=== PATIENT | male | born 1935 | race Caucasian/White ===

== ENCOUNTER 2018-07-01 09:56 | Emergency (ER) | payer MEDICARE ==
--- NOTE | 2018-07-01 10:13 | ED ---
Neurological HPI - HPI Summary HPI Summary: This pt is an 82 y/o male presenting to [facility] via EMS from [facility] who presents with unresponsiveness and left sided deficits today. EMS reports pt walked down to breakfast at around 07:00 today and at around 08:30 pt became unresponsive. Per EMS, sometime in between breakfast and unresponsiveness staff noted pt to have left sided deficit. Upon arrival to the ED, nursing staff noted that pt was not moving his left side. While in CT scan pt began to move left side. Per aide who works at this group home, pt slept all day yesterday and as he likes to wander around he fell in another resident's room the day before yesterday. Pt is a DNR and requires comfort measures only. HPI IS LIMITED DUE TO LEVEL 5 CAVEAT - pt is lethargic. - History of Current Complaint Chief Complaint: EDNeurologicalDeficit Stated Complaint: UNRESPONSIVE Time Seen by Provider: 07/01/18 10:01 Hx Obtained From: EMS Hx From Patient Unobtainable Due To: Other - LEVEL 5 CAVEAT - pt is lethargic Onset/Duration: Sudden Onset, Started hours ago, Still Present Timing: Sudden Onset Current Severity: Moderate Neurological Deficit Location: LUE, LLE Pain Intensity: 0 Character: Lethargy, Responsiveness, Other: - POS: left sided deficit Aggravating: Unknown Alleviating: Unknown - Allergy/Home Medications Allergies/Adverse Reactions: Allergies Allergy/AdvReac Type Severity Reaction Status Date / Time No Known Allergies Allergy Verified 07/01/18 10:04 Home Medications: Home Medications Acetaminophen [Acetaminophen ER] 650 mg PO SEE INSTRUCTIONS PRN 07/01/18 [ History Confirmed 07/01/18] Amlodipine Besylate [Norvasc 5 mg tab] 5 mg PO DAILY 07/01/18 [History Confirmed 07/01/18] Cholecalciferol TAB* [Vitamin D TAB*] 2,000 unit PO DAILY 07/01/18 [History Confirmed 07/01/18] Enalapril Maleate 20 mg PO DAILY 07/01/18 [History Confirmed 07/01/18] Finasteride [Proscar] 5 mg PO DAILY 07/01/18 [History Confirmed 07/01/18] Insulin Glargine,Hum.rec.anlog [Lantus] 45 unit SC DAILY 07/01/18 [History Confirmed 07/01/18] Multivitamin 1 tab PO DAILY 07/01/18 [History Confirmed 07/01/18] Sennosides [Kp Senna] 17.2 mg PO BID 07/01/18 [History Confirmed 07/01/18] Sertraline HCl [Zoloft] 25 mg PO DAILY 07/01/18 [History Confirmed 07/01/18] Tamsulosin HCl 0.4 mg PO DAILY 07/01/18 [History Confirmed 07/01/18] PMH/Surg Hx/FS Hx/Imm Hx Previously Healthy: No - unknown due to level 5 caveat - pt is lethargic Endocrine/Hematology History: Reports: Hx Diabetes Cardiovascular History: Reports: Hx Hypertension History: Reports: Hx Benign Prostatic Hyperplasia Neurological History: Reports: Hx Dementia Infectious Disease History: Unable to Obtain/Confirm Infectious Disease History: Denies: Traveled Outside the [place] in Last 30 Days - Family History Known Family History: Positive: Unknown - LEVEL 5 CAVEAT - pt is lethargic. - Social History Lives: [facility] Alcohol Use: unknown due to level 5 caveat - lethargic Smoking Status (MU): Unknown if Ever Smoked Review of Systems - ROS Summary Review of Systems Summary: ROS IS LIMITED DUE TO LEVEL 5 CAVEAT - pt is lethargic. Negative: Fever Neurological: Other - POS: left sided deficit, unresponsive All Other Systems Reviewed And Are Negative: No Physical Exam - Summary Physical Exam Summary: Constitutional: Well-developed, Well-nourished, Responds to painful stimuli. (- ) Distressed Skin: Warm, Dry HENT: Normocephalic; Atraumatic Eyes: Conjunctiva normal Neck: Musculoskeletal ROM normal neck. (-) JVD, (-) Stridor, (-) Tracheal deviation Cardio: Rhythm regular, rate normal, Heart sounds normal; Intact distal pulses; The pedal pulses are 2+ and symmetric. Radial pulses are 2+ and symmetric. (-) Murmur Pulmonary/Chest wall: Effort normal. (-) Respiratory distress, (-) Wheezes, (-) Rales Abd: Soft. (-) Tenderness, (-) Distension, (-) Guarding, (-) Rebound Musculoskeletal: (-) Edema Lymph: (-) Cervical adenopathy Neuro: Partial Gaze Palsy. Responds to painful stimuli Psych: Mood and affect Normal Triage Information Reviewed: Yes Vital Signs On Initial Exam: Initial Vitals Temp Pulse Resp BP Pulse Ox 96.8 F 87 18 172/85 97 07/01/18 10:02 07/01/18 10:02 07/01/18 10:02 07/01/18 10:02 07/01/18 10:02 Vital Signs Reviewed: Yes Completion Of Physical Exam Limited Due To: Level 5 - pt is lethargic Diagnostics - Vital Signs Vital Signs Temp Pulse Resp BP Pulse Ox 07/01/18 10:02 96.8 F 87 18 172/85 97 - Laboratory Result Diagrams: 07/01/18 10:16 07/01/18 10:16 Lab Statement: Any lab studies that have been ordered have been reviewed, and results considered in the medical decision making process. - Radiology Chest XR Radiology Interpretation Completed By: Radiologist Summary of Radiographic Findings: IMPRESSION: No active cardiopulmonary disease is noted. Dr. Young has reviewed this report. - CT Brain CT CT Interpretation Completed By: Radiologist Summary of CT Findings: IMPRESSION: Multifocal hypoattenuation of the parietal lobes bilaterally suggestive of subacute nonhemorrhagic infarcts. Preliminary findings were discussed with Dr. Young in the emergency department at approximately 10:13 AM on July 01, 2018. - EKG 10:16 Cardiac Rate: NL - at 76 bpm Summary of EKG Findings: Paced rhythm. No STEMI. NIH Scale - NIH Scale Level of Consciousness: Alert/Keenly Responsive Ask Patient the Month and His/Her Age: Both Correct Ask Pt to Open/Close Eyes and [employer] Consultant/Release Non-Paretic Hand: Both Correctly Best Gaze (Only Horizontal Eye Movement): Partial Gaze Palsy Visual Field Testing: No Visual Loss Facial Paresis-Pt to Smile & Close Eyes or Grimace Symmetry: Normal/Symmetrical Motor Function - Right Arm: No Drift-Holds 10 Seconds Motor Function - Left Arm: No Drift-Holds 10 Seconds Motor Function - Right Leg: No Drift-Holds 10 Seconds Motor Function - Left Leg: No Drift-Holds 10 Seconds Limb Ataxia-Must be out of Proportion to Weakness Present: Absent Sensory (Use Pinprick to Test Arms/Legs/Trunk/Face): Normal Best Language (Describe Picture, Name Items): No Aphasia Dysarthria (Read Several Words): Normal Extinction and Inattention: No Abnormality Total Score: 1 Re-Evaluation - Re-Evaluation First Eval Re-Evaluation Time: 10:10 Comment: pt returned from CT Second Eval Re-Evaluation Time: 10:11 Comment: Dr. Erickson, neurologist, at bedside. Course/Dx - Course Course Of Treatment: RED KENNEDY at 0958. Brain CT ordered at 09:59. Pt to CT scan at 10:00. Returned from CT at 10:10. Dr. Erickson, neurologist, at bedside at 10:11. Dr. Tripathi, radiologist, reports brain CT results at 10:13. Dr. Erickson at 12:30 reports he suspects CVA. TPA is contraindicted due to previous bleeds and encephalomalacia. Assessment/Plan: Pt is an 82 y/o male presenting to [facility] via EMS from [facility] who presents with unresponsiveness and left sided deficits today. EMS reports pt walked down to breakfast at around 07:00 today and at around 08: 30 pt became unresponsive. Per EMS, sometime in between breakfast and unresponsiveness staff noted pt to have left sided deficit. Pt is a DNR and requires comfort measures only. RED KENNEDY called at 09:58. Brain CT shows multifocal hypoattenuation of the parietal lobes bilaterally suggestive of subacute nonhemorrhagic infarcts. Discussed case with Dr. Erickson, neurologist , and he suspects CVA. TPA is contraindicated due to previous bleeds and encephalomalacia. Comfort care status. Admit for palliative care. I discussed with Dr. Parks, hospitalist, who accepted the pt for admission. - Diagnoses Provider Diagnoses: CVA (cerebral vascular accident) During the Visit The Following Alert/Code Occurred: Red Kennedy - at 09:58 - Physician Notifications Discussed Care Of Patient With: Stefano Sousa Time Discussed With Above Provider: 10:13 Instructed by Provider To: Other - Dr. Cervantes, radiologist, reports brain CT results. [12:30] Discussed with Dr. Erickson, neurologist, and he suspects CVA. TPA is contraindicated due to previous bleeds. [12:54] I discussed with Dr. Parks, hospitalist, who accepted the pt for admission. - Critical Care Time Critical Care Time: 30-74 min - 45 minutes Discharge - Sign-Out/Discharge Documenting (check all that apply): Patient Departure - Admit to [facility] - Discharge Plan Condition: Stable Disposition: ADMITTED TO [facility] Referrals: Wali Monaco MD [Primary Care Provider] - - Attestation Statements Document Initiated by Scribe: Yes Documenting Scribe: Renee Rayo Provider For Whom Scribe is Documenting (Include Credential): Angel Young MD Scribe Attestation: Renee Alan, scribed for Angel Young MD on 07/01/18 at 1332. Status of Scribe Document: Ready
[2018-07-01 10:28] LABS: ABS Basophils 0.1 10^3/ul (0-0.2); ABS Eosinophils 0.1 10^3/ul (0-0.6); ABS Lymphocytes 1.4 10^3/ul (1.0-4.8); ABS Monocytes 0.8 10^3/ul (0-0.8); ABS Neutrophils 7.4 10^3/ul (1.5-7.7); ABS Nucleated RBC 0 10^3/ul; Eosinophil % 1.4 %; Hematocrit 39 % (42-52); Hemoglobin 13.1 g/dl (14.0-18.0); Lymphocyte % 14.1 %; Mean Corpuscular HGB Conc 34 g/dl (31-36); Mean Corpuscular Hemoglobin 31 pg (27-31); Mean Corpuscular Volume 92 fL (80-94); Mean Platelet Volume 8.7 fL (7.4-10.4); Nucleated Red Blood Cells % 0; Platelet Count 229 10^3/ul (150-450); Red Blood Count 4.21 10^6/ul (4.00-5.40); Red Cell Distribution Width 15 % (10.5-15); White Blood Count 9.9 10^3/ul (3.5-10.8)
[2018-07-01 10:40] LABS: Activated Partial Thrombo Time 29.4 seconds (26.0-36.3); INR 1.12 (0.77-1.02)
[2018-07-01 10:54] LABS: Albumin 3.9 g/dL (3.2-5.2); BUN/Creatinine Ratio 24.8 (8-20); Calcium 10.8 mg/dL (8.6-10.3); EGFR Non-African American 64.9 (>60); Globulin 3.9 g/dL (2-4); HDL Cholesterol 38.8 mg/dL; Total Bilirubin 2.4 mg/dL (0.2-1.0); Total Protein 7.8 g/dL (6.4-8.9)
--- NOTE | 2018-07-01 13:16 | CONS ---
NEUROLOGY CONSULTATION: DATE OF CONSULT: 07/01/18 LOCATION: He is in the emergency room. REFERRING PHYSICIAN: Dr. Young. CHIEF COMPLAINT: Unresponsiveness. HISTORY OF PRESENT ILLNESS: Aldo Sharma is an 82-year-old resident of [facility], who was sent in with unresponsiveness to the emergency room this morning. The history that was given to me via nursing staff and Dr. Young is that he was able to walk to his breakfast and was well until approximately 7:30 or 8. He apparently slumped to the left and then was unresponsive. He was brought into the emergency room and a CAT scan was obtained, which reveals a severe atrophy and bilateral occipital parietal hypodensities. The interpretation is multifocal hypoattenuation of the parietal lobes bilaterally suggestive of subacute nonhemorrhagic infarcts. Upon my initial evaluation in the emergency room, he had a right gaze preference and was unresponsive with eyes closed. Over time, he became a little more responsive. PAST MEDICAL HISTORY: Limited. He apparently is demented. As part of code alexander, we have determined he is not on anticoagulants. He does have diabetes and hypertension. There are no laboratories back yet. Otherwise, I do not yet have his med list. He apparently is not to be resuscitated and there is some indication he is not to be transferred. I have his healthcare proxy's name and phone number; we will call after this brief note and follow up with the second later. MEDICATIONS: His med list was found sent over from his [facility]. 1. He is on amlodipine 5 mg p.o. daily. 2. Vitamin D. 3. Enalapril 20 mg p.o. daily. 4. Proscar 5 mg p.o. daily. 5. Senna. 6. Tamsulosin 0.4 mg p.o. daily. 7. Vitamins. 8. Sertraline 25 mg p.o. daily. 9. Lantus insulin. 10. Acetaminophen p.r.n. pain. PHYSICAL EXAM: On examination, his blood pressure is running about 160/90, heart rate is in the 60s and appears to be regular. There are occasional ectopic beats. His QRS complex is wide. Skin is warm and dry. Head is atraumatic other than right ear looks a little bit abraised, red and swollen. Neck range of motion is limited, but there is no meningismus. Heart tones are distant, but I do not hear any murmurs. Carotid pulses are present. I do not hear cervical bruits. Neurologically, he has a forced right gaze deviation. His pupils are somewhat small and reactive to light from about 2.5 down to 2 mm. I could see his left optic disc and it appeared sharp. He did not respond of visual threat from either direction. Facial musculature revealed relative left facial weakness when stimulated in producing a grimace. Facial sensation and nasal tickle was responsive bilaterally, but more briskly responsive on the right than the left. I could not get him to open his mouth long enough for me to take a look at his palate and tongue. He was mute. He moves both arms and both legs. He tends to move the right side a bit more. He tends to want to cross the right leg over the left. Muscle tone seems a little bit less in the left arm and leg in the right. He responds briskly to deep nail bed pressure on the right arm with a right more than left facial grimace, and then responds a little more sluggishly into a greater degree of nail bed pressure in the left arm than to the right, again with right facial grimace. He does move the left leg restlessly. He has bilateral Babinski signs. There is no laboratory data yet to review other than the CT scan. IMPRESSION: Impression is that of a probable right hemisphere stroke. He also has bilateral occipital parietal hypodensities. He may have had multiple cardiac emboli or episode of hypotension. One of the nurses who works at [facility] said that he reportedly fell the day before yesterday and slept most all of yesterday. Head trauma would be another possibility, but it sounds like he was reasonably functional first thing this morning. He did speak with his healthcare proxy as to what extent intervention is desired. I certainly would not recommend tPA given his subacute infarctions and history of head injury and lack of clear direction. I will make further recommendations after I speak with his healthcare proxy and sort out the degree of care that is desired. [id number]/[facility] #: [id number] AMOL
[2018-07-01 14:31] VITALS: BP 137/79
--- NOTE | 2018-07-01 14:55 | CONS ---
UPDATE ADDENDUM: DATE OF CONSULT: 07/01/18 REFERRING PHYSICIAN: Dr. Young. He is in the emergency room to be admitted. CHIEF COMPLAINT: Unresponsiveness. INTERVAL HISTORY: Since earlier today, I took another look at Mr. Sharma and he is about the same. He continues with the right gaze deviation and is mute. He moves both sides, but moves to the right side better. He tends to sleep if not disturbed. He does not open his eyes to command or attempt to speak. Laboratory data reviewed includes unremarkable CBC with a hemoglobin of 13.1. Chemistry profile notable for glucose of 184, calcium elevated at 10.8, total bilirubin slightly elevated at 2.4. Albumin is normal at 3.9. Cholesterol 106, LDL 54. INR is borderline elevated at 1.12. His most recent blood pressure 138/77, heart rate is in the 60s and regular. I spoke with Mr. Sharma' healthcare proxy, his granddaughter, Luh Manzo. Her phone number was mobile [phone]. I left a message on a voicemail and she called me back through the soda fountain operator. I explained the situation with her grandfather. I said that I felt that he had probably had a stroke. She related that he had prior "brain bleeds". She also said that his quality of life had deteriorated such he could no longer care for himself and was extremely forgetful and would not want to live with the declining quality of life that he has had. I told her options included comfort care with consultation by palliative care or we could be more aggressive and try to sort out the etiology of this most recent cerebrovascular event. My suspicion in looking at his CT scan and with the additional history is that he has amyloid angiopathy and the areas of low density in the posterior hemispheres bilaterally would be consistent with the prior hemorrhages in that region. It will also be consistent with the progressive dementia. I related my conversation to Dr. Young. The patient will be admitted for palliative comfort care only. I will continue to check in on the patient and provide whatever guidance I am available to provide. I told Luh Manzo I could be reached via the page soda fountain operator. She said she will plan to come in tomorrow and talk with the palliative care team. [id number]/[facility] #: [id number] [facility]
--- NOTE | 2018-07-01 20:04 | CONS ---
CC: Provider at [facility] * CONSULTATION REPORT: DATE OF CONSULT: 07/01/18 PRIMARY CARE PROVIDER: [facility]. CHIEF COMPLAINT: Unresponsive. HISTORY OF PRESENT ILLNESS: Mr. Sharma is an 82-year-old male who recently transferred from [facility] to [facility] about 1-1/2 to 2 weeks ago and has a history of dementia, past intracerebral hemorrhages, hypertension, BPH and type 2 diabetes who was brought to the emergency room from [facility] after being found unresponsive. Reportedly, the patient had been well up until approximately 7:30 or 8:00 a.m. on the day of complication. He apparently then slumped to the left and was unresponsive. Additionally, the patient was also noted to be not quite as interactive on the day prior to transfer to the emergency room. Liu Heath was called. The CT scan of the patient's brain revealed multifocal hypoattenuation of the parietal lobes bilaterally, suggestive of subacute non-hemorrhagic infarcts. Dr. Erickson saw the patient in consultation in the emergency room and spoke with the patient's granddaughter who is the patient's healthcare proxy. The patient at this point is unable to answer any questions. PAST MEDICAL HISTORY: 1. Hypertension. 2. Dementia. 3. Type 2 diabetes. 4. BPH. MEDICATIONS: 1. Amlodipine 5 mg p.o. daily. 2. Vitamin D. 3. Enalapril 20 mg p.o. daily. 4. Proscar 5 mg p.o. daily. 5. Senna. 6. Flomax 0.4 mg p.o. daily. 7. Multivitamin 1 tab p.o. daily. 8. Sertraline 25 mg p.o. daily. 9. Tylenol p.r.n. 10. Lantus 45 units subcutaneous daily. ALLERGIES: No known drug allergies. FAMILY HISTORY: Unobtainable from the patient. SOCIAL HISTORY: Unobtainable from the patient. REVIEW OF SYSTEMS: Unobtainable from the patient. PHYSICAL EXAM: Blood pressure 137/79, pulse 63, respirations 15, temp 97.6, O2 sat 96% on room air. General: The patient is a well-developed elderly male, seen lying in the stretcher with his eyes closed, moving his right side spontaneously with decreased spontaneous movement of the left side, but in no acute distress. Cardiac: Reveals normal S1, S2 with a regular rate and rhythm. Pulmonary: Lungs are clear to auscultation bilaterally. Abdomen: Bowel sounds present. Abdomen is soft, nontender, nondistended. Musculoskeletal: Again, the patient has spontaneous movement of the right side better than the left side, though with painful stimulation the patient does withdraw to pain in the left upper extremity and there is decreased spontaneous movement of the left lower extremity. Skin is warm and dry. There are no rashes. Neuro Exam: The patient is mute. He has a right gaze deviation. He is unable to otherwise participate on exam. Psych: The patient is unresponsive. DIAGNOSTIC STUDIES/LAB DATA: WBC 9.9, hemoglobin 13.1, hematocrit 39, platelets 229,000. INR 1.12. Sodium 139, potassium 4.0, chloride 109, CO2 of 26, BUN 27, creatinine 1.09, glucose 184, lactic acid 0.8, calcium 10.8, bilirubin 2.4, AST 15, ALT 12, alk phos 58. Troponin 0.01. Albumin 3.9. Triglycerides 66, cholesterol 106, LDL 54, HDL 38.8. Chest x-ray: No active cardiopulmonary disease is noted. CT brain: As above, revealed multifocal hypoattenuation of the parietal lobes bilaterally, suggestive of subacute non-hemorrhagic infarcts. ASSESSMENT AND PLAN: Mr. Sharma is an 82-year-old male with a history of hypertension, type 2 diabetes, and dementia as well as past intracerebral hemorrhages, who presented to the emergency room after being found unresponsive and was found to have probable subacute cerebrovascular accidents. At this point, after Dr. Erickson spoke with the patient's granddaughter (healthcare proxy), the decision is made to treat the patient in a palliative manner. At this point, [facility] is able to take the patient back to provide palliative care. I have recommended that a hospice referral be made. At this point, I do not believe that the patient will be able to take any medications in by mouth, and therefore, I have discontinued all of his usual home medications. I have also discontinued his Lantus as it is likely he will not be eating. Hyperglycemia at this point would not be concerning, but hypoglycemia could cause significant problems. The patient will have p.r.n. morphine available for pain, air hunger, and anxiety. If the patient wakes up and becomes alert enough that he could try to swallow, a speech therapy consultation should be requested at the longterm. At that point, a swallowing evaluation could be performed. If the patient wakes up enough but is not felt to be safe to swallow, pleasure feedings could be considered, especially if the goals of care are comfort in this situation. I spoke myself with the patient's granddaughter and she agrees with the plan of care. TIME SPENT: Fifty-five minutes were spent on this consultation. [id number]/[facility] #: [id number] [facility]
== END 2018-07-01 19:17 ==
LOC: ED 09:56
DX: I63.9 Cerebral infarction, unspecified (principal); I10 Essential (primary) hypertension; F03.90 Unspecified dementia, unspecified severity, without behavioral disturbance, psychotic disturbance, mood disturbance, and anxiety; E11.9 Type 2 diabetes mellitus without complications; N40.0 Benign prostatic hyperplasia without lower urinary tract symptoms
CPT/HCPCS: 36415; 70450; 71045; 80053; 80061; 83605; 84484; 85025; 85610; 85730; 86850; 86900; 86901; 93005; 99284